=== PATIENT | male | born 2000 | race Caucasian/White ===

== ENCOUNTER 2021-10-19 06:19 | Emergency (ER) | payer BC, OTHER ==
[~2021-10-19] VITALS: Ht 190 cm; Wt 77.1 kg
[2021-10-19 06:36] LABS: BILIRUBIN,URINE NEGATIVE (NEGATIVE); CLARITY,URINE CLEAR; COLOR,URINE YELLOW; GLUCOSE, URINE (UA) NEGATIVE (NEGATIVE); KETONES,URINE NEGATIVE (NEGATIVE); LEUKOCYTE ESTERASE ,URINE NEGATIVE (NEGATIVE); NITRITE,URINE NEGATIVE (NEGATIVE); PH,URINE 6.5 (5-9); PROTEIN,URINE NEGATIVE (NEGATIVE)
--- NOTE | 2021-10-19 06:42 | ED Abdominal Pain ---
General Stated Complaint: POSS KIDNEY STONE Source of Information: Patient Exam Limitations: No Limitations History of Present Illness Date Seen by Provider: Oct 19, 2021 Time Seen by Provider: 06:24 Initial Comments Patient to the ER by private conveyance with chief complaint that he woke up with left flank pain stabbing waxing and waning tween 6 and 9. He had some urgency last night. He is not having any blood in his urine. No fevers chills. He has a distant history of using growth hormone but no other significant medical history. No history of kidney stones. Patient notes immediate relief after urinating in the ER. He says this happened once before and after a couple times of urinating it went away spontaneously. His dad has a history of kidney stones. Allergies and Home Medications Allergies Coded Allergies: No Known Drug Allergies (Unverified , 10/19/21) Patient Home Medication List Home Medication List Reviewed: Yes Review of Systems Review of Systems Constitutional: No chills, No diaphoresis EENTM: No Blurred Vision, No Double Vision Respiratory: Denies Cough, Denies Shortness of Air Cardiovascular: Denies Chest Pain, Denies Lightheadedness Gastrointestinal: Denies Constipated, Denies Diarrhea, Denies Nausea Genitourinary: Denies Burning, Denies Discharge Musculoskeletal: No back pain, No joint pain Skin: No dryness, No rash Psychiatric/Neurological: Denies Anxiety, Denies Depressed, Denies Headache All Other Systems Reviewed Negative Unless Noted: Yes Past Vilddnv-Jcvcpt-Eitwhz Hx Patient Social History Tobacco Use?: No Use of E-Cig and/or Vaping dev: No Substance use?: No Physical Exam Vital Signs Vital Signs - First Documented 10/19/21 06:25 Temp 35.8 Pulse 57 Resp 16 B/P (MAP) 139/87 (104) Pulse Ox 98 O2 Delivery Room Air Capillary Refill : Height/Weight/BMI Height: '" Weight: lbs. oz. kg; BMI Method: General Appearance: WD/WN, no apparent distress HEENT: PERRL/EOMI, pharynx normal Neck: full range of motion, supple, normal inspection Respiratory: lungs clear, normal breath sounds, no respiratory distress Cardiovascular: normal peripheral pulses, regular rate, rhythm Gastrointestinal: normal bowel sounds, non tender, soft Extremities: no pedal edema, normal capillary refill Back: normal inspection, CVA tenderness (L) Neurologic/Psychiatric: alert, normal mood/affect, oriented x 3 Progress/Results/Core Measures Results/Orders Lab Results Laboratory Tests Test 10/19/21 06:30 Range/Units White Blood Count 7.4 4.3-11.0 10^3/uL Red Blood Count 5.35 4.30-5.52 10^6/uL Hemoglobin 16.5 13.3-17.7 g/dL Hematocrit 46 40-54 % Mean Corpuscular Volume 86 80-99 fL Mean Corpuscular Hemoglobin 31 25-34 pg Mean Corpuscular Hemoglobin Concent 36 32-36 g/dL Red Cell Distribution Width 11.6 10.0-14.5 % Platelet Count 303 130-400 10^3/uL Mean Platelet Volume 9.6 9.0-12.2 fL Immature Granulocyte % (Auto) 0 % Neutrophils (%) (Auto) 48 42-75 % Lymphocytes (%) (Auto) 41 12-44 % Monocytes (%) (Auto) 8 0-12 % Eosinophils (%) (Auto) 2 0-10 % Basophils (%) (Auto) 1 0-10 % Neutrophils # (Auto) 3.6 1.8-7.8 10^3/uL Lymphocytes # (Auto) 3.0 1.0-4.0 10^3/uL Monocytes # (Auto) 0.6 0.0-1.0 10^3/uL Eosinophils # (Auto) 0.2 0.0-0.3 10^3/uL Basophils # (Auto) 0.0 0.0-0.1 10^3/uL Immature Granulocyte # (Auto) 0.0 0.0-0.1 10^3/uL Urine Color YELLOW Urine Clarity CLEAR Urine pH 6.5 5-9 Urine Specific [place] <=1.005 1.016-1.022 Urine Protein NEGATIVE NEGATIVE Urine Glucose (UA) NEGATIVE NEGATIVE Urine Ketones NEGATIVE NEGATIVE Urine Nitrite NEGATIVE NEGATIVE Urine Bilirubin NEGATIVE NEGATIVE Urine Urobilinogen 0.2 < = 1.0 MG/DL Urine Leukocyte Esterase NEGATIVE NEGATIVE Urine RBC (Auto) NEGATIVE NEGATIVE Urine RBC NONE /HPF Urine WBC NONE /HPF Urine Crystals NONE /LPF Urine Bacteria NEGATIVE /HPF Urine Casts NONE /LPF Urine Mucus NEGATIVE /LPF Urine Culture Indicated NO Sodium Level 138 135-145 MMOL/L Potassium Level 3.7 3.6-5.0 MMOL/L Chloride Level 98 98-107 MMOL/L Carbon Dioxide Level 26 21-32 MMOL/L Anion Gap 14 5-14 MMOL/L Blood Urea Nitrogen 16 7-18 MG/DL Creatinine 1.39 H 0.60-1.30 MG/DL Estimat Glomerular Filtration Rate 74 BUN/Creatinine Ratio 12 Glucose Level 100 70-105 MG/DL Calcium Level 9.6 8.5-10.1 MG/DL Corrected Calcium 8.5-10.1 MG/DL Total Bilirubin 0.9 0.1-1.0 MG/DL Aspartate Amino Transf (AST/SGOT) 22 5-34 U/L Alanine Aminotransferase (ALT/SGPT) 16 0-55 U/L Alkaline Phosphatase 81 40-136 U/L C-Reactive Protein High Sensitivity 0.02 0.00-0.50 MG/DL Total Protein 7.1 6.4-8.2 GM/DL Albumin 4.9 H 3.2-4.5 GM/DL My Orders Orders - CARL LESTER Ua Culture If Indicated (10/19/21 06:21) Ed Iv/Invasive Line Start (10/19/21 06:42) Cbc With Automated Diff (10/19/21 06:42) Comprehensive Metabolic Panel (10/19/21 06:42) Hs C Reactive Protein (10/19/21 06:42) Ketorolac Injection (Toradol Injection) (10/19/21 06:45) Ct Abd/Pelvis Wo(Kidney Stone) (10/19/21 07:10) Medications Given in ED Current Medications Medications Dose Ordered Sig/Jesus Route Start Time Stop Time Status Last Admin Dose Admin Ketorolac Tromethamine 30 mg ONCE ONCE IVP 10/19/21 06:45 10/19/21 06:46 DC 10/19/21 06:55 30 MG Vital Signs/I&O 10/19/21 06:25 Temp 35.8 Pulse 57 Resp 16 B/P (MAP) 139/87 (104) Pulse Ox 98 O2 Delivery Room Air Departure Impression Primary Impression: Suspected ureteral stone Disposition: 01 HOME, SELF-CARE Condition: Stable Departure-Patient Inst. Decision time for Depature: 08:25 Referrals: DOUGLAS GALVAN DO (PCP) Primary Care Physician Add. Discharge Instructions: While I do not see a kidney stone on your CT I suspect this may have been the case this morning. If your pain returns then I would have you follow-up with your primary care doctor for further investigation. If your pain is out of control despite Tylenol and ibuprofen then you may return to the ER for reevaluation. Drink plenty of fluids. Work/School Note: Work Release Form Date Seen in the Emergency Department: Oct 19, 2021 Return to Work: Oct 19, 2021 Restrictions: No Restrictions CARL LESTER Oct 19, 2021 06:42
[2021-10-19] MEDS ORDERED: KETOROLAC 30 MG/ML VIAL IVP ONE (06:45)
[2021-10-19 06:46] LABS: BACTERIA,URINE NEGATIVE /HPF
[2021-10-19 06:47] LABS: BASOPHILS % (AUTO) 1 % (0-10); EOSINOPHILS # (AUTO) 0.2 10^3/uL (0.0-0.3); EOSINOPHILS % (AUTO) 2 % (0-10); HEMATOCRIT 46 % (40-54); HEMOGLOBIN 16.5 g/dL (13.3-17.7); LYMPHOCYTES % (AUTO) 41 % (12-44); MEAN CORPUSCULAR HEMOGLOBIN 31 pg (25-34); MEAN CORPUSCULAR HGB CONC 36 g/dL (32-36); MEAN CORPUSCULAR VOLUME 86 fL (80-99); MEAN PLATELET VOLUME 9.6 fL (9.0-12.2); MONOCYTES # (AUTO) 0.6 10^3/uL (0.0-1.0); MONOCYTES % (AUTO) 8 % (0-12); NEUTROPHILS # (AUTO) 3.6 10^3/uL (1.8-7.8); NEUTROPHILS % (AUTO) 48 % (42-75); PLATELET COUNT 303 10^3/uL (130-400); WHITE BLOOD COUNT 7.4 10^3/uL (4.3-11.0)
[2021-10-19 06:49] LABS: ALBUMIN 4.9 GM/DL (3.2-4.5); CHLORIDE 98 MMOL/L (98-107); POTASSIUM 3.7 MMOL/L (3.6-5.0); SODIUM 138 MMOL/L (135-145)
[2021-10-19 06:51] LABS: CALCIUM 9.6 MG/DL (8.5-10.1)
[2021-10-19 06:52] LABS: GLUCOSE 100 MG/DL (70-105); TOTAL PROTEIN 7.1 GM/DL (6.4-8.2)
[2021-10-19 06:53] LABS: CARBON DIOXIDE 26 MMOL/L (21-32)
[2021-10-19 06:54] LABS: BILIRUBIN,TOTAL 0.9 MG/DL (0.1-1.0)
[2021-10-19 06:55] LABS: ALKALINE PHOSPHATASE 81 U/L (40-136)
[2021-10-19 06:56] LABS: CREATININE SERUM 1.39 MG/DL (0.60-1.30); GFR ESTIMATED 74
[2021-10-19 06:57] LABS: BUN/CREATININE RATIO 12
[2021-10-19 06:58] LABS: ALANINE AMINOTRANSFERASE 16 U/L (0-55)
--- NOTE | 2021-10-19 08:06 | Diagnostic Imaging Report ---
PROCEDURE: CT urinary tract, rule out kidney stone. TECHNIQUE: Multiple contiguous axial images were obtained through the abdomen and pelvis without the use of intravenous contrast. Auto Exposure Controls were utilized during the CT exam to meet ALARA standards for radiation dose reduction. INDICATION: Left flank pain. COMPARISON: None FINDINGS: Included portions of the lung bases are clear. CT ABDOMEN: No renal calculi seen on either side. Ureters are difficult to follow in their entirety, but no calculi are seen along the expected course of ureters on either side. Additionally, there is no hydroureteronephrosis or other evidence of obstruction. No suspicious renal masses are seen on this noncontrast study. The adrenal glands, spleen, pancreas, and liver have an unremarkable noncontrast CT appearance. There is no loculated fluid collection, free fluid or free air within the abdomen. No abnormal mesenteric or retroperitoneal adenopathy is seen. Normal appendix is identified. Small bowel loops are nondistended. Moderate amount of air and stool is present scattered throughout the colon. Osseous structures show no acute abnormalities. CT PELVIS: Urinary bladder is opacified. No calculi are seen within urinary bladder. There is no loculated fluid collection, free fluid or free air. No abnormal lymph nodes are seen. Osseous structures show no acute abnormalities. Bilateral L5 pars defects are noted. IMPRESSION: 1. Unremarkable noncontrast CT of the kidneys and renal collecting systems. 2. Moderate colonic air and stool. Please correlate for constipation. Dictated by: Dictated on workstation # [id number]
[2021-10-19 08:40] VITALS: BP 139/87
== END 2021-10-19 08:40 | disposition home or self-care (01) ==
LOC: ER 06:28
DX: R10.9 Unspecified abdominal pain (principal)
CPT/HCPCS: 36415; 74176; 80053; 81000; 85025; 86141